=== PATIENT | male | born 1965 | race Caucasian/White ===

== ENCOUNTER → 2020-07-25 | Outpatient (CLI) | payer OTHER | LOC: CT 09:00 | DX: R10.84 Generalized abdominal pain (principal); R16.2 Hepatomegaly with splenomegaly, not elsewhere classified; K74.60 Unspecified cirrhosis of liver; K82.8 Other specified diseases of gallbladder; K57.90 Diverticulosis of intestine, part unspecified, without perforation or abscess without bleeding | CPT/HCPCS: 36415; 82565; Q9967 ==

== ENCOUNTER → 2020-08-01 | Outpatient (CLI) | payer OTHER | LOC: KOH-I 12:51 | DX: Z12.2 Encounter for screening for malignant neoplasm of respiratory organs (principal); F17.210 Nicotine dependence, cigarettes, uncomplicated | CPT/HCPCS: 71271 ==

== ENCOUNTER → 2020-08-20 | Outpatient (CLI) | payer OTHER | LOC: KOH-I 08:43 | DX: K82.9 Disease of gallbladder, unspecified (principal); R10.84 Generalized abdominal pain; K76.0 Fatty (change of) liver, not elsewhere classified | CPT/HCPCS: 76705 ==

== ENCOUNTER → 2020-10-13 | Outpatient (CLI) | payer OTHER ==
[2020-10-14 10:13] LABS: ALPHA-1-ANTITRYPSIN, SERUM 146 mg/dL (101-187)
[2020-10-15 15:11] LABS: MITOCHONDRIAL (M2) ANTIBODY <20.0 Units (0.0-20.0)
== END ==
LOC: LAB 10:21
PROVIDERS: Internal Medicine Gastroenterology
DX: R74.8 Abnormal levels of other serum enzymes (principal)
CPT/HCPCS: 36415; 80076; 82103; 82728; 83540; 83550; 86038